=== PATIENT | female | born 1980 | race Caucasian/White ===

== ENCOUNTER 2020-12-16 16:15 | Inpatient (IN) | payer OTHER ==
[~2020-12-16] VITALS: Ht 160 cm; Wt 91.0 kg
[~2020-12-16 16:15] MED LIST: ALAVERT D-12 A1 EACH PO; ALBUTEROL2.5 MG/3 M INH; CLARITIN10 MG PO; DECADRON4 MG PO; FEOSOL325 MG PO; FISH OIL 1,0001 EACH PO; FOLIC ACID 1 MG1 MG PO; HYDROCODON-ACE1 EAC6 PO; KLONOPIN1 MG PO; METHOTREXATE T2.5 MG PO; MYCOSTATIN CREA15 GM TOP; MYCOSTATIN POWD15 GM TOP; PLAQUENIL 200200 MG PO; PREDNISONE 20 M20 MG PO; PROTONIX40 MG PO; RESTASIS 0.05%1 EACH OU
[2020-12-16 19:29] LABS: HEMOGLOBIN 11.8 gm/dl (12.3-15.3); RED BLOOD COUNT 4.41 M/UL (4.00-5.10); WHITE BLOOD COUNT 6.7 K/UL (4.5-11.0)
[2020-12-17 04:02] LABS: HEMOGLOBIN 10.5 gm/dl (12.3-15.3); RED BLOOD COUNT 3.88 M/UL (4.00-5.10); WHITE BLOOD COUNT 5.5 K/UL (4.5-11.0)
[2020-12-17 04:14] LABS: BUN/CREATININE RATIO 17 (0-10)
[2020-12-17 12:46] LABS: HEMOGLOBIN 9.8 gm/dl (12.3-15.3); RED BLOOD COUNT 3.77 M/UL (4.00-5.10)
[2020-12-17 12:47] LABS: WHITE BLOOD COUNT 2.1 K/UL (4.5-11.0)
[2020-12-18 03:31] LABS: RED BLOOD COUNT 3.74 M/UL (4.00-5.10)
--- NOTE | 2020-12-18 14:12 | NUR ---
NO CHANGE FROM PREVIOUS ASSESSMENT
[2020-12-19 03:03] LABS: HEMOGLOBIN 10.3 gm/dl (12.3-15.3); RED BLOOD COUNT 3.65 M/UL (4.00-5.10)
[2020-12-19 03:06] LABS: WHITE BLOOD COUNT 8.3 K/UL (4.5-11.0)
[2020-12-19] MEDS ORDERED: PREDNISONE 20 M20 MG PO (09:16)
[2020-12-19 15:14] LABS: A/G RATIO 0.6 (0.7-1.7); ALBUMIN 3.3 g/dL (2.9-4.4); ALPHA-1-GLOBULIN 0.2 g/dL (0.0-0.4); ALPHA-2-GLOBULIN 0.9 g/dL (0.4-1.0); GAMMA GLOBULIN 4.2 g/dL (0.4-1.8); GLOBULIN, TOTAL 6.3 g/dL (2.2-3.9); IMMUNOGLOBULIN A, QN, SERUM 272 mg/dL (87-352); IMMUNOGLOBULIN G, QN, SERUM 4218 mg/dL (586-1602); IMMUNOGLOBULIN M, QN, SERUM 136 mg/dL (26-217); M-SPIKE Not Observed g/dL (Not Observed); PROTEIN, TOTAL, SERUM 9.6 g/dL (6.0-8.5)
== END 2020-12-19 10:22 | disposition home or self-care (01) | DRG 813 ==
LOC: ER1 16:15 → CDU 20:51 → PROG CARE 20:51
PROVIDERS: Internal Medicine Infectious Disease; Physician Assistant Medical; Registered Nurse; ADMIT Internal Medicine
PROC: 30233S1 Transfusion of Nonautologous Globulin into Peripheral Vein, Percutaneous Approach (ICD-10-PCS; principal; 2020-12-16)
PROC: 30233R1 Transfusion of Nonautologous Platelets into Peripheral Vein, Percutaneous Approach (ICD-10-PCS; principal; 2020-12-16)
DX: D69.3 Immune thrombocytopenic purpura (principal); M06.9 Rheumatoid arthritis, unspecified; M35.00 Sjogren syndrome, unspecified; K21.9 Gastro-esophageal reflux disease without esophagitis; F41.9 Anxiety disorder, unspecified; G89.29 Other chronic pain; M54.9 Dorsalgia, unspecified; R00.1 Bradycardia, unspecified; D50.9 Iron deficiency anemia, unspecified; Z90.49 Acquired absence of other specified parts of digestive tract; Z88.0 Allergy status to penicillin; Z82.49 Family history of ischemic heart disease and other diseases of the circulatory system; Z83.3 Family history of diabetes mellitus
CPT/HCPCS: 36415; 36430; 71045; 80048; 80053; 82784; 83883; 84155; 84165; 85025; 85610; 86334; 86900; 86901; 93005; 94664; 94760; 99285; C9113; J1200; J1561; J1568; J2930; P9035; U0002

== ENCOUNTER 2021-06-21 15:44 | Inpatient (IN) | payer OTHER ==
[~2021-06-21] VITALS: Ht 160 cm; Wt 95.3 kg
[2021-06-21 17:14] LABS: HEMOGLOBIN 12.1 gm/dl (12.3-15.3); RED BLOOD COUNT 4.37 M/UL (4.00-5.10); WHITE BLOOD COUNT 5.9 K/UL (4.5-11.0)
[2021-06-21 17:41] LABS: BUN/CREATININE RATIO 14 (0-10)
[2021-06-22 05:28] LABS: BUN/CREATININE RATIO 12 (0-10)
[2021-06-22 05:29] LABS: HEMOGLOBIN 11.1 gm/dl (12.3-15.3); RED BLOOD COUNT 3.94 M/UL (4.00-5.10); WHITE BLOOD COUNT 3.5 K/UL (4.5-11.0)
[2021-06-22] MEDS ORDERED: ACETAMINOPHEN325 MG PO (10:47)
[2021-06-22] MEDS ORDERED: MIRALAX17 GM PO (10:47)
[2021-06-22] MEDS ORDERED: BANOPHEN25 M1 PO (10:49)
== END 2021-06-23 15:15 | disposition home or self-care (01) | DRG 813 ==
LOC: ER1 15:44 → MED SURG 4 21:16 → CDU 21:16 → MED SURG 4 06-22 06:59
PROVIDERS: Internal Medicine; Physician Assistant Medical; ADMIT Internal Medicine
PROC: 6A550Z2 Pheresis of Platelets, Single (ICD-10-PCS; principal; 2021-06-21)
DX: D69.3 Immune thrombocytopenic purpura (principal); M06.9 Rheumatoid arthritis, unspecified; K21.9 Gastro-esophageal reflux disease without esophagitis; M35.00 Sjogren syndrome, unspecified; R00.1 Bradycardia, unspecified; Z98.890 Other specified postprocedural states; Z90.49 Acquired absence of other specified parts of digestive tract; Z88.0 Allergy status to penicillin; Z79.899 Other long term (current) drug therapy; Z84.89 Family history of other specified conditions
CPT/HCPCS: 80048; 80053; 85025; 85610; 86850; 86900; 86901; J1200; J1568; J2920; P9035; P9037

== ENCOUNTER 2021-09-14 15:04 | Inpatient (IN) | payer OTHER ==
[~2021-09-14] VITALS: Ht 160 cm; Wt 91.6 kg
[~2021-09-14 15:04] MED LIST changes: +ACETAMINOPHEN325 MG PO; +BANOPHEN25 M1 PO; +MIRALAX17 GM PO
[2021-09-14 16:55] LABS: HEMOGLOBIN 12.3 gm/dl (12.3-15.3); RED BLOOD COUNT 4.3 M/UL (4.00-5.10); WHITE BLOOD COUNT 5.9 K/UL (4.5-11.0)
[2021-09-14 17:17] LABS: BUN/CREATININE RATIO 11 (0-10)
[2021-09-15 06:22] LABS: HEMOGLOBIN 11.8 gm/dl (12.3-15.3); RED BLOOD COUNT 4.16 M/UL (4.00-5.10)
[2021-09-15 06:29] LABS: WHITE BLOOD COUNT 2.1 K/UL (4.5-11.0)
[2021-09-15 06:47] LABS: BUN/CREATININE RATIO 17 (0-10)
[2021-09-15] MEDS ORDERED: RESTASIS1 EACH OP (11:24)
[2021-09-15] MEDS ORDERED: VITAMIN D21250 MCG PO (11:25)
[2021-09-15] MEDS ORDERED: FERROUS SULFAT325 M2 PO (11:25)
[2021-09-15] MEDS ORDERED: LEVOTHYROXINE25 MCG PO (11:26)
[2021-09-15] MEDS ORDERED: LORATADINE10 MG PO (11:26)
[2021-09-15] MEDS ORDERED: NYSTATIN15 GM TOP (11:27)
[2021-09-15] MEDS ORDERED: NYSTATIN60 GM TOP (11:28)
[2021-09-15] MEDS ORDERED: OXYBUTYNIN CHLOR5 M1 PO (11:28)
[2021-09-15] MEDS ORDERED: SENNA S TABLET1 EACH PO (11:29)
[2021-09-15] MEDS ORDERED: TRIAMCINOLONE430 GM TOP (11:30)
[2021-09-15] MEDS ORDERED: NASAL SPRAY44 ML (11:32)
[2021-09-15] MEDS ORDERED: HYDROCODON-ACE1 EAC6 PO (11:32)
[2021-09-16 04:22] LABS: HEMOGLOBIN 11.4 gm/dl (12.3-15.3)
[2021-09-16 04:39] LABS: WHITE BLOOD COUNT 9.3 K/UL (4.5-11.0)
[2021-09-16] MEDS ORDERED: PREDNISONE 20 M20 MG PO (11:39)
== END 2021-09-16 12:29 | disposition home or self-care (01) | DRG 813 ==
LOC: ER1 15:04 → CDU 18:37 → M/S 22:16
PROVIDERS: Physician Assistant; ADMIT Internal Medicine
DX: D69.3 Immune thrombocytopenic purpura (principal); M35.00 Sjogren syndrome, unspecified; R00.1 Bradycardia, unspecified; D72.819 Decreased white blood cell count, unspecified; E03.9 Hypothyroidism, unspecified; M06.9 Rheumatoid arthritis, unspecified; Z88.0 Allergy status to penicillin; Z83.3 Family history of diabetes mellitus; Z82.49 Family history of ischemic heart disease and other diseases of the circulatory system; Z84.1 Family history of disorders of kidney and ureter; Z90.49 Acquired absence of other specified parts of digestive tract; Z98.890 Other specified postprocedural states; Z79.52 Long term (current) use of systemic steroids; Z79.899 Other long term (current) drug therapy
CPT/HCPCS: 36415; 70450; 80048; 80053; 85025; 86900; 86901; 93005; 99284; J1568; J2930; U0002